=== PATIENT | male | born 1970 | race Caucasian/White ===

== ENCOUNTER 2017-09-08 08:03 | Day surgery (SDC) | payer OTHER ==
[2017-09-07 15:02] VITALS: BP 121/73
[2017-09-07 15:14] LABS: BASOPHILS % (AUTO) 0.6 % (0.0-5.0); EOSINOPHILS % (AUTO) 3.9 % (0.0-8.0); HEMATOCRIT 43.1 % (42-54); LYMPHOCYTES % (AUTO) 36.2 % (21.0-51.0); MEAN CORPUSCULAR HEMOGLOBIN 29.8 pg (27.0-33.0); MEAN CORPUSCULAR HGB CONC 34.6 g/dL (32.0-36.0); MEAN CORPUSCULAR VOLUME 86.2 fL (79-99); MONOCYTES % (AUTO) 6.7 % (3.0-13.0); NEUTROPHILS % (AUTO) 52.6 % (40.0-77.0); PLATELET COUNT (AUTO) 318 K/uL (130-400); RED CELL DISTRIBUTION WIDTH 12.9 % (11.0-15.5); WHITE BLOOD COUNT (AUTO) 7.5 K/uL (4.8-10.8)
[2017-09-07 15:21] LABS: POTASSIUM 4.2 mmol/L (3.5-5.1)
[2017-09-08] VITALS (24 sets, daily range): BP systolic 100–125; BP diastolic 59–80
[~2017-09-08] VITALS: Ht 182.9 cm; Wt 104.7 kg
[~2017-09-08 08:03] MED LIST: EPINEPHRINE 1 MG/ML 30ML VIAL IJ ONE; EXCEDRIN PO; MULTIVITAMIN PO; TRAM50TA4 PO
[2017-09-08] MEDS ORDERED: CEFAZOLIN 3GM /D5W 100ML 100 ML IV SCH (09:00)
[2017-09-08] MEDS ORDERED: LIDOCAINE PF 2% 5ML ABBOJECT ONE (09:03)
[2017-09-08] MEDS ORDERED: DEXAMETHASONE SOD PHOSPHATE 10MG/ML 1ML VIAL ONE ×2 (09:03→10:30)
[2017-09-08] MEDS ORDERED: SUCCINYLCHOLINE 200MG/10ML SYR ONE ×2 (09:03→10:30)
[2017-09-08] MEDS ORDERED: MIDAZOLAM HCL 1 MG/ML 2ML VIAL ONE ×2 (09:03→09:32)
[2017-09-08] MEDS ORDERED: ONDANSETRON HCL 4 MG/2 ML VIAL ONE (09:03)
[2017-09-08] MEDS ORDERED: GLYCOPYRROLATE 0.2 MG/ML 5 ML VIAL ONE (09:03)
[2017-09-08] MEDS ORDERED: PROPOFOL 10 MG/ML 20ML VIAL IV ONE (09:04)
[2017-09-08] MEDS ORDERED: FENTANYL CITRATE PF 50 MCG/1 ML 2ML VIAL ONE (09:04)
[2017-09-08] MEDS ORDERED: CLINDAMYCIN 900 MG/D5% WATER 50 ML IV ONE (09:46)
[2017-09-08] MEDS ORDERED: LACTATED RINGERS 1000ML 1,000 ML IV ONE (09:46)
[2017-09-08] MEDS ORDERED: ROCURONIUM BROMIDE 10MG/1ML 5ML VL ONE (10:29)
[2017-09-08] MEDS ORDERED: METOCLOPRAMIDE 10 MG/2 ML VIAL ONE (10:30)
[2017-09-08] MEDS ORDERED: LIDOCAINE HCL 4% LTA SOL 4 ML VIAL ONE (10:30)
[2017-09-08] MEDS ORDERED: NEOSTIGMINE METHYLSULFATE 1MG/ML IV ONE (10:31)
[2017-09-08] MEDS ORDERED: NALOXONE HCL 0.4 MG/1 ML ML ONE (11:37)
[2017-09-08] MEDS ORDERED: HYDR-309 PO (11:41)
[2017-09-08] MEDS ORDERED: NAPR-1023 PO (11:41)
[2017-09-08] MEDS ORDERED: CLIN300C3 PO (11:41)
== END 2017-09-08 15:29 | disposition home or self-care (01) ==
LOC: DAH 08:03
PROVIDERS: ATTEND Orthopaedic Surgery
DX: M75.102 Unspecified rotator cuff tear or rupture of left shoulder, not specified as traumatic (principal); M25.812 Other specified joint disorders, left shoulder; M75.52 Bursitis of left shoulder; M19.012 Primary osteoarthritis, left shoulder; Z79.899 Other long term (current) drug therapy; Z98.890 Other specified postprocedural states; Z84.89 Family history of other specified conditions
CPT/HCPCS: 29823; 29824; 29826; 36415; 80048; 85025; A4565; A4649 ×2; A4930; A6204; J0171; J0330 ×2; J0690; J1100 ×2; J2001; J2250 ×2; J2310; J2405; J2704; J2710; J2765; J3010; J3490 ×3; J7030; J7120

== ENCOUNTER 2021-11-02 00:53 | Emergency (ER) | payer OTHER ==
[~2021-11-02] VITALS: Ht 182.9 cm; Wt 110.2 kg
[~2021-11-02 00:53] MED LIST changes: +CLIN300C3 PO; -EPINEPHRINE 1 MG/ML 30ML VIAL IJ ONE; +HYDR-4457 PO; +NAPR-1023 PO; -TRAM50TA4 PO
[2021-11-02] MEDS ORDERED: DiphenhydrAMINE HCL 50 MG/ML VIAL IV ONE (01:30)
[2021-11-02] MEDS ORDERED: KETOROLAC 15MG/ML VIAL (15MG/ML) IV ONE (01:30)
[2021-11-02] MEDS ORDERED: PROCHLORPERAZINE 10MG/2ML INJ IV ONE (01:30)
[2021-11-02] MEDS ORDERED: FIORIT PO (01:50)
[2021-11-02 02:13] VITALS: BP 119/74
== END 2021-11-02 02:19 | disposition home or self-care (01) ==
LOC: EDH 00:53
DX: G43.909 Migraine, unspecified, not intractable, without status migrainosus (principal); R11.2 Nausea with vomiting, unspecified; Z90.49 Acquired absence of other specified parts of digestive tract; Z79.1 Long term (current) use of non-steroidal anti-inflammatories (NSAID); Z88.0 Allergy status to penicillin
CPT/HCPCS: 99284; 96374; 70450; 96375; J1200; J0780; J1885

== ENCOUNTER 2023-03-22 06:40 | Emergency (ER) | payer OTHER, BC ==
[~2023-03-22] VITALS: Ht 182.9 cm; Wt 108.0 kg
[~2023-03-22 06:40] MED LIST changes: +FIORIT PO
[2023-03-22 07:53] LABS: HEMATOCRIT 46.2 % (42-54); MEAN CORPUSCULAR HEMOGLOBIN 29.8 pg (27.0-33.0); MEAN CORPUSCULAR HGB CONC 34.2 g/dL (32.0-36.0); MEAN CORPUSCULAR VOLUME 87.2 fL (79-99); RED BLOOD CELL COUNT(AUTO) 5.3 MIL/uL (4.50-6.20); RED CELL DISTRIBUTION WIDTH 12.7 % (11.0-15.5); WHITE BLOOD COUNT (AUTO) 8.9 K/uL (4.8-10.8)
[2023-03-22] MEDS ORDERED: MORPHINE 4 MG SYG IVP ONE (08:00)
[2023-03-22] MEDS ORDERED: LACTATED RINGERS 1000ML IV ONE (08:00)
[2023-03-22] MEDS ORDERED: ONDANSETRON 4MG INJ IVP ONE (08:00)
[2023-03-22 08:18] LABS: ALBUMIN 3.9 g/dL (3.5-5.0); BILIRUBIN,TOTAL 2.3 mg/dL (0.2-1.0); POTASSIUM 3.8 mmol/L (3.5-5.1); TOTAL PROTEIN, SERUM 7.8 g/dL (6.0-8.3)
[2023-03-22 09:36] VITALS: BP 128/71; PULSE 72; RESP 17; O2SAT 98
[2023-03-22 10:13] LABS: APPEARANCE,URINE CLEAR (CLEAR); BILIRUBIN,URINE NEGATIVE (NEGATIVE); COLOR,URINE LIGHT-YELLOW (YELLOW); GLUCOSE, URINE (UA) NEGATIVE (NEGATIVE); KETONES,URINE NEGATIVE (NEGATIVE); LEUKOCYTE ESTERASE ,URINE NEGATIVE Leu/uL (NEGATIVE); NITRATE,URINE NEGATIVE (NEGATIVE); PH,URINE 6.5 (5.0-8.0); PROTEIN,URINE NEGATIVE (NEGATIVE); UROBILINOGEN,URINE 0.2 mg/dL (0.2-1.0)
[2023-03-22 10:16] LABS: ADD UA MICROSCOPIC YES
[2023-03-22 10:19] LABS: MUCUS,URINE RARE LPF (None Seen); WBC,URINE 0-1 /HPF (0-1)
== END 2023-03-22 10:52 | disposition home or self-care (01) ==
LOC: EDH 06:40
DX: K80.50 Calculus of bile duct without cholangitis or cholecystitis without obstruction (principal); K82.8 Other specified diseases of gallbladder; Z79.899 Other long term (current) drug therapy; Z88.0 Allergy status to penicillin
CPT/HCPCS: 99285; 96374; 76705; 96361; 96375; 80053; 83690; 85027; 81001; 36415; J7120; J2405; J2270

== ENCOUNTER → 2023-07-10 | Outpatient (CLI) | payer OTHER ==
[~2023-07-10] MED LIST changes: +GADOTERATE MEGLUMINE 10 MMOL/20 ML VIAL IV ONE
== END | disposition home or self-care (01) ==
LOC: RAH 07:57
PROVIDERS: ATTEND Internal Medicine Gastroenterology
DX: N28.1 Cyst of kidney, acquired (principal); R10.11 Right upper quadrant pain; R16.0 Hepatomegaly, not elsewhere classified; K44.9 Diaphragmatic hernia without obstruction or gangrene
CPT/HCPCS: 74183; A9575